=== PATIENT | male | born 1960 | race Caucasian/White ===

== ENCOUNTER 2016-06-23 08:54 | Inpatient (IN) | payer OTHER ==
--- NOTE | ~2016-06-23 | CN ---
Consultation Report [place] [address] [place]. [address] NAME: SILVIANO TABOR : 60 STATUS : ADM IN [facility]#: [id number] AGE: 56 ADM/REG DATE : 06/23/16 MR#: [id number] REPORT SERV DATE: 06/24/16 DICTATED BY: FERNANDO MORENO DATE: 06/24/16 REPORT STATUS : Draft TRANSCRIBED BY: MODL DATE: 06/24/16 CONSULTATION DATE OF CONSULTATION: 06/23/2016 REASON FOR REFERRAL: Evaluation for coronary artery bypass grafting. HISTORY OF PRESENT ILLNESS: The patient is a 56-year-old male, who reports that over the weekend while traveling, he began having chest pain, head and neck soreness, and shortness of breath. He also reported jaw pain. These were relieved with rest. Eventually, this prompted a visit to the emergency department in [place] at the [facility] where his troponins were noted to be elevated with ST changes. He was transferred to [facility] where he underwent cardiac catheterization that revealed multivessel disease including three- vessel disease. He currently denies chest pain. PAST MEDICAL HISTORY: Significant for hypertension, diabetes mellitus, hyperlipidemia, back pain, and questionable stroke history. PAST SURGICAL HISTORY: Includes cholecystectomy, carpal tunnel surgery, cardiac cath, and hernia repair. SOCIAL HISTORY: He continues to smoke at a half pack per day x40 years. Occasional alcohol use. No illegal drug use. 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 He has good family support. FAMILY HISTORY: Significant for heart disease. HOME MEDICATIONS: Include glimepiride, glyburide, Lantus, lisinopril, metformin, simvastatin, and Xanax. ALLERGIES: TO FLEXERIL, TRAMADOL, DARVOCET, ROBAXIN, TAPE, TORADOL, AND AMOXICILLIN. REVIEW OF SYSTEMS: GENERAL: Denies unintentional weight loss or gain. NEUROLOGIC: Denies headaches. Reports some TIA type symptoms. RESPIRATORY: Negative for cough. CARDIOVASCULAR: Positive for chest pain. MUSCULOSKELETAL: Positive for lower extremity leg pain. INTEGUMENTARY: Negative open wounds. GASTROINTESTINAL: Negative for constipation or diarrhea. GENITOURINARY: Negative for dysuria. HEENT: Positive for blurred vision at baseline. PHYSICAL EXAMINATION: VITAL SIGNS: Temperature is 97.9 degrees, respiratory rate of 18, blood pressure is 124/60, heart rate of 84, on 2 L of nasal cannula saturating 95%. His height is 135 cm. Weight 106 Consultation Report [place] [address] [facility] [place]. [address] NAME: SILVIANO TABOR : 60 STATUS : ADM IN [facility]#: [id number] AGE: 56 ADM/REG DATE : 06/23/16 MR#: [id number] REPORT SERV DATE: 06/24/16 DICTATED BY: FERNANDO MORENO DATE: 06/24/16 REPORT STATUS : Draft TRANSCRIBED BY: ANAHY DATE: 06/24/16 kg. HEENT: Normocephalic, atraumatic with no scleral icterus. NECK: Supple with no thyromegaly. CHEST: Clear to auscultation bilaterally. HEART: Regular rate and rhythm with no murmurs, rubs, or gallops. ABDOMEN: Soft, nontender, nondistended. EXTREMITIES: Warm with 1+ distal pulses. No clubbing, cyanosis, or edema. MUSCULOSKELETAL: Grossly intact. NEUROLOGIC: Grossly intact. STUDIES: I did review his cardiac cath and agree with three-vessel coronary artery disease. He also had an echocardiogram performed which showed no valvular disease and a normal ejection fraction. IMPRESSION: Multivessel coronary artery disease, not amenable to percutaneous intervention. PLAN: I do believe he would benefit from multivessel coronary artery bypass grafting. I have explained all risks, benefits, and alternatives of surgery including but not limited to, bleeding, infection, stroke, and . He understands these risks and wished to proceed with surgery. This will be scheduled for tomorrow, 06/24/2016. COLTON/ANAHY Fernando Moreno M.D. / [id number] CC: Valentina Marie JOVONNA R [facility]
--- NOTE | ~2016-06-23 | OP ---
Record Of Operation [facility] [address] [place]. [address] NAME: SILVIANO TABOR : 60 STATUS : ADM IN PAT#: [id number] AGE: 56 ADM/REG DATE : 06/23/16 MR#: [id number] REPORT SERV DATE: 06/26/16 DICTATED BY: FERNANDO MORENO DATE: 06/25/16 REPORT STATUS : Draft TRANSCRIBED BY: MODAbhi DATE: 06/25/16 DATE OF PROCEDURE: 06/24/2016 PREOPERATIVE DIAGNOSES: Multivessel coronary artery disease, morbid obesity, chronic obstructive pulmonary disease, and diabetes mellitus. POSTOPERATIVE DIAGNOSES: Multivessel coronary artery disease, morbid obesity, chronic obstructive pulmonary disease, and diabetes mellitus. PROCEDURE: 1. Urgent coronary artery bypass grafting x3 with GARDNER to the LAD, saphenous vein graft to the posterior descending artery, saphenous vein graft to the obtuse marginal. 2. Transesophageal echocardiogram. 3. VasoView vein harvesting, right lower extremity. SURGEON: Fernando Moreno M.D. PHARMACY MANAGER: Ash Goins. ANESTHESIA: Andrew Spencer M.D. CARDIOPULMONARY BYPASS TIME: 82 minutes. CROSS-CLAMP TIME: 54 minutes. FINDINGS: Good conduit and targets, ejection fraction approximating 45%, no valvular abnormalities. WIRES: Atrioventricular x2. TUBES: Left pleural x1, right pleural x1, and mediastinal x2. COMPLICATIONS: None. CONDITION: Fair to the ICU on no drips. AV paced at 80. DESCRIPTION OF PROCEDURE: After informed consent was obtained from the patient, he was brought to the operating room, laid in supine position. General anesthesia was induced. Transesophageal echocardiogram was performed, which showed ejection fraction approximating 45% with no valvular abnormalities. The patient was prepped and draped in normal fashion. VasoView vein harvesting commenced on the right lower extremity by making an incision just medial to the right knee and dissection carried proximally and distally. All tributaries were coagulated. Counter incisions were made. The vein was removed. All tributaries were then clipped. Skin incisions were closed using Vicryl sutures. Median sternotomy was performed in the usual fashion. Left haile-sternum elevated using a Rultract retractor. The left pleura was taken down in its entirety. The left internal mammary artery harvested from Record Of Operation [facility] [address] [place]. [address] NAME: SILVIANO TABOR : 60 STATUS : ADM IN PAT#: [id number] AGE: 56 ADM/REG DATE : 06/23/16 MR#: [id number] REPORT SERV DATE: 06/26/16 DICTATED BY: FERNANDO MORENO DATE: 06/25/16 REPORT STATUS : Draft TRANSCRIBED BY: MODL DATE: 06/25/16 the chest wall using Bovie electrocautery. All tributaries were clipped. After systemic heparinization, the distal limb was severed from the chest wall and good blood flow was noted. Papaverine was soaked on the vessel wall. Pericardium was opened in the midline and tacked to the skin using multiple silk sutures. Aortic cannulation was performed on the proximal aortic arch and venous cannulation performed in the right atrial appendage. The patient was placed on cardiopulmonary bypass and cooled to approximately 35 degrees Celsius. A cardioplegia/vent cannula was placed in the ascending aorta. Cross clamp was placed across the aorta and 800 mL of cold blood cardioplegia given in the aortic root with excellent arrest. Base of the heart was elevated and a high branching posterior descending artery was identified and dissected using a [place] blade and extended using Park scissors. Saphenous vein was placed in a reverse manner, a dangelo created, and end-to-side anastomosis was performed using a running 7-0 Deklene suture. Heart was filled. The vein sized to the ascending aorta around the right side of the heart. Antegrade cardioplegia was given. Obtuse marginal artery was then identified, dissected using a [place] blade, and extended using Park scissors. Remaining portion of saphenous vein was placed in a reverse manner, a dangelo created, and an end-to-side anastomosis was performed using a running 7-0 Deklene suture. Heart was filled. The vein sized to the ascending aorta around the left side of the heart. Antegrade cardioplegia was given. Midportion of the LAD artery was identified and dissected using a [place] blade and extended using Park scissors. Distal end of the mammary artery was fashioned to a dangelo and end-to-side anastomosis was performed using a running 8-0 Deklene suture. Bulldog was released and excellent blood flow was noted distally. Fascia of the mammary was tacked down to the LV wall using two 6-0 Prolene sutures. Antegrade cardioplegia was given. An 11 blade knife was used to make two separate stab incisions on the ascending aorta and a 4.5 mm punch used to create two separate aortotomies. Two separate proximal anastomoses were performed using a running 6-0 Prolene suture for each. Heart was then filled and de-aired through the root vent. Cross-clamp was removed. Ventricular pacing wires placed on the right ventricular surface. Two atrial pacing wires placed on the right atrial surface. A left pleural, right pleural, and posterior pericardial chest tube were placed. After the patient achieved normothermia, he was weaned from cardiopulmonary bypass without difficulty. Doppler flow analysis was performed on all three tributaries and all three had excellent flow. Protamine was administered. The patient was decannulated. After surgical hemostasis was achieved, an anterior pericardial chest tube was placed. Sternum reapproximated using the sternal cable system. The skin, subcutaneous, and subcuticular tissue were closed over the sternum using running Vicryl and Monocryl sutures. Overall, the patient tolerated the procedure well and was transported to the ICU in fair condition on no drips. AV paced at 80. CCR/MODL Fernando Moreno M.D. / [id number] CC: Record Of Operation [address] [address] NAME: SILVIANO TABOR : 60 STATUS : ADM IN [facility]#: [id number] AGE: 56 ADM/REG DATE : 06/23/16 MR#: [id number] REPORT SERV DATE: 06/26/16 DICTATED BY: FERNANDO MORENO DATE: 06/25/16 REPORT STATUS : Draft TRANSCRIBED BY: MODL DATE: 06/25/16 Valentina Marie JOVANNA R [facility]
--- NOTE | ~2016-06-23 | DS ---
Discharge Summary [facility] [address] [place]. [address] NAME: SILVIANO TABOR : 60 STATUS : DIS IN PAT#: [id number] AGE: 56 ADM/REG DATE : 06/23/16 MR#: [id number] REPORT SERV DATE: 07/10/16 DICTATED BY: MARTY ARTEAGA DATE: 07/09/16 REPORT STATUS : Draft TRANSCRIBED BY: ANAHY DATE: 07/09/16 Data Collection from hospitalization DISCHARGE DIAGNOSES: 1. Twz-HA-cdtnggdfo myocardial infarction. 2. Coronary artery disease, status post coronary artery bypass grafting. 3. Hypertension. 4. Hypercholesterolemia. 5. Type 2 diabetes mellitus. 6. History of questionable stroke. 7. Tobacco use. CONSULTATIONS: 1. Fernando Herrera M.D. 2. Hitesh Seymour M.D. PROCEDURES PERFORMED: 1. Cardiac catheterization on 06/23/2016. 2. Urgent coronary artery bypass grafting x3 with left internal mammary artery to the left anterior descending artery, saphenous vein graft to the posterior descending artery, saphenous vein graft to the obtuse marginal; transesophageal echocardiogram; VasoView vein harvesting from the right lower extremity on 06/24/2016. 3. Carotid blood flow study on 06/23/2016. 4. CT scan of the chest without contrast on 06/23/2016. MEDICATIONS: Aspirin 81 mg daily, Lipitor 80 mg at bedtime, NovoLog injection insulin 10 units subcutaneously before meals, Lantus 50 units subcutaneously twice a day, Prinivil 20 mg daily, Lopressor 50 mg twice a day, and Percocet 10/325 one tablet every four hours as needed. CONDITION AT DISCHARGE: Stable. DISPOSITION: The patient was discharged home on a low-sodium, low-cholesterol diet with activities as instructed. He would follow up with Dr. Fernando Herrera four weeks following discharge. He would follow up with Dr. Ignacio sam three to four weeks following discharge. He would follow up with Dr. Osiel Calix 7 to 10 days following discharge. HOSPITAL COURSE: This is a 56-year-old man who reported that while traveling over the weekend prior to this admission, he began to have chest pain, head and neck soreness, and shortness of breath. He also reported some jaw pain. These were relieved with rest. Eventually, this prompted a visit to the emergency department in [place] at the [facility]. His troponins were noted to be elevated with ST changes. It was felt that he would need to undergo cardiac catheterization. He was felt to have had a [id number] myocardial infarction. He was transferred here and admitted at this time for further evaluation and treatment. Upon admission, he was taken to the cardiac clinical laboratory aides teacher where he underwent the above-mentioned procedure. He tolerated this well, and there were no complications. Postoperatively, he Discharge Summary [place] [id number] [facility] [address]. [address] NAME: SILVIANO TABOR : 60 STATUS : DIS IN PAT#: [id number] AGE: 56 ADM/REG DATE : 06/23/16 MR#: [id number] REPORT SERV DATE: 07/10/16 DICTATED BY: MARTY ARTEAGA DATE: 07/09/16 REPORT STATUS : Draft TRANSCRIBED BY: ANAHY DATE: 07/09/[address] Fernando Herrera. Cardiac catheterization had revealed multivessel disease including three-vessel disease. He denied any chest pain at this time. It was felt that the patient would need to undergo coronary artery bypass grafting. A carotid blood flow study was performed as well as a CT scan of the chest without contrast. The patient was seen by Dr. Hitesh Seymour. O2 saturation was 95% on 2 liters. The patient has insulin- dependent diabetes mellitus type 2, which was uncontrolled. Hemoglobin A1c was 10.7. He has a history of noncompliance using Lantus sporadically, metformin sporadically, and not taking Amaryl and not being inherent to a diabetic diet. He was going to be given Levemir that evening. Postop hyperglycemia orders were in place. The following day, he was taken to the operating room by Dr. Fernando Herrera where he underwent the above-mentioned procedure. He tolerated this well, and there were no complications. He had undergone an echocardiogram preoperatively and was found to have an ejection fraction of 55%. On postop day #1, he complained of pain at the chest tube site. Chest x-ray showed low lung volumes. Pleural chest tubes were removed. The patient was unable to breathe deeply. Diuresis was being performed. On 06/26/2016, the patient was ambulatory. He had no chest pain or shortness of breath. Telemetry revealed sinus rhythm/sinus tachycardia. Metoprolol was increased. Lipitor was going to be increased. He had been changed to subcu insulin. O2 saturation was 93% on room air. Levemir was adjusted. He was evaluated by Physical Therapy. White count was 17.9. The following day, chest x-ray was stable. There was no pneumothorax. He was beginning to ambulate more. Lisinopril was added. Discharge planning was performed. Levemir was increased. On 06/28/2016, he was alert and cooperative. White count was 13.5. He underwent diabetes education. Discharge instructions were given. Due to his improved and stable condition, he was discharged home with the above-stated instructions. Information collected by: Venus Cazares I submit the above information as my discharge summary. TG/MODL Marty Arteaga M.D. / [id number] CC: Valentina Marie JOVONNA R [facility] Coleman Reade, M.D.
[2016-06-23] MEDS ORDERED: GLUCOPHAGE1000 MG PO (13:29)
[2016-06-23] MEDS ORDERED: AMARYL2 PO (13:30)
[2016-06-23] MEDS ORDERED: ZOCOR40 PO (13:31)
[2016-06-23] MEDS ORDERED: LANTUS SC (13:31)
[2016-06-23] MEDS ORDERED: X5 PO (13:31)
[2016-06-23] MEDS ORDERED: LISINOPRIL40 MG PO (13:32)
[2016-06-23 14:01] LABS: BASOPHILS 0.4 %; BASOPHILS ABSOLUTE 0.04 10/3/uL (0.0-0.16); EOSINOPHILS ABSOLUTE 0.29 10/3/uL (0.0-0.53); HEMATOCRIT 40.3 % (40.0-51.0); HEMOGLOBIN 14.3 g/dL (13.6-17.8); IMMATURE GRANULOCYTES 0.3 %; IMMATURE GRANULOCYTES ABSOLUTE 0.03 10/3/uL (0.0-0.11); LYMPHOCYTES 38.9 %; LYMPHOCYTES ABSOLUTE 3.75 10/3/uL (0.67-4.30); MANUAL DIFF NO %; MEAN CORPUS HGB CONC 35.5 g/dL (32.0-36.0); MEAN CORPUSCULAR HEMOGLOB 32.6 pg (26.0-34.0); MEAN CORPUSCULAR VOLUME 91.8 fL (80-100); MEAN PLATELET VOLUME 10.7 fL (9.2-13.0); MONOCYTES 7.5 %; MONOCYTES ABSOLUTE 0.72 10/3/uL (0.21-1.20); NEUTROPHILS 49.9 %; NEUTROPHILS ABSOLUTE 4.81 10/3/uL (2.02-8.40); PLATELET COUNT 162 10/3/uL (150-400); RBC DISTRIBUTION WIDTH 13.5 % (12.0-16.0); RED CELL COUNT 4.39 10/6/uL (4.7-6.1); WHITE BLOOD CELLS 9.6 10/3/uL (4.5-10.5)
[2016-06-23 14:22] LABS: BUN (BLOOD UREA NITROGEN) 16 MG/DL (6-23); CALCIUM, SERUM 9.3 MG/DL (8.5-10.4); CHLORIDE, SERUM 104 MMOL/L (96-112); CHOL/HDL RATIO(NOT ORDER) 7.7 (0-5); CHOLESTEROL 285 MG/DL (< 200); CO2 (CARBON DIOXIDE) 33 MMOL/L (24-34); CREATININE 0.79 MG/DL (0.70-1.30); GFR AFRICAN AMERICAN 116 ML/MIN (>=60); GFR NON AFRICAN AMERICAN 100 ML/MIN (>=60); GLUCOSE, SERUM 138 MG/DL (60-99); HDL CHOLESTEROL 37 MG/DL (> 39); LDL CHOLESTEROL 191 MG/DL (< 130); NON-HDL CHOLESTEROL 248 MG/DL (< 160); POTASSIUM, SERUM 4.1 MMOL/L (3.5-5.3); SODIUM, SERUM 139 MMOL/L (135-148); TRIGLYCERIDE 289 MG/DL (< 150)
[2016-06-23 19:46] LABS: WBC (NOT ORDERED) (RFLEX) 0 (0-5)
[2016-06-23 20:30] LABS: ASCORBIC ACID (UR NOT ORDER) NEG (NEG); BILIRUBIN, URINE NEGATIVE (NEG); KETONE, URINE NEGATIVE (NEG); LEUKOCYTE ESTERASE(NOT OR NEG (NEG)
[2016-06-24 04:14] LABS: BASOPHILS 0.3 %; BASOPHILS ABSOLUTE 0.02 10/3/uL (0.0-0.16); EOSINOPHILS 2.7 %; EOSINOPHILS ABSOLUTE 0.19 10/3/uL (0.0-0.53); HEMATOCRIT 40.9 % (40.0-51.0); HEMOGLOBIN 14.1 g/dL (13.6-17.8); IMMATURE GRANULOCYTES 0.1 %; IMMATURE GRANULOCYTES ABSOLUTE 0.01 10/3/uL (0.0-0.11); LYMPHOCYTES 42.2 %; MEAN CORPUS HGB CONC 34.5 g/dL (32.0-36.0); MEAN CORPUSCULAR HEMOGLOB 31.8 pg (26.0-34.0); MEAN CORPUSCULAR VOLUME 92.3 fL (80-100); MONOCYTES 9.4 %; MONOCYTES ABSOLUTE 0.67 10/3/uL (0.21-1.20); NEUTROPHILS 45.3 %; NEUTROPHILS ABSOLUTE 3.22 10/3/uL (2.02-8.40); PLATELET COUNT 136 10/3/uL (150-400); RBC DISTRIBUTION WIDTH 13.3 % (12.0-16.0); RED CELL COUNT 4.43 10/6/uL (4.7-6.1); WHITE BLOOD CELLS 7.1 10/3/uL (4.5-10.5)
[2016-06-24 04:19] LABS: MANUAL DIFF NO %
[2016-06-24 04:21] LABS: INTERNATIONAL NORMAL RATI 1.1 UNITS (-); PARTIAL THROMBO TIME 30.3 SEC (22.5-37.2); PROTIME (NOT ORD) 13.6 SEC (12.0-14.5)
[2016-06-24 04:35] LABS: A/G RATIO 0.8 (0.7-1.9); ALBUMIN 3.1 G/DL (3.5-5.0); ALKALINE PHOSPHATASE 65 U/L (45-117); BUN (BLOOD UREA NITROGEN) 14 MG/DL (6-23); CALCIUM, SERUM 9.2 MG/DL (8.5-10.4); CHLORIDE, SERUM 102 MMOL/L (96-112); CO2 (CARBON DIOXIDE) 31 MMOL/L (24-34); CREATININE 0.96 MG/DL (0.70-1.30); GFR AFRICAN AMERICAN 102 ML/MIN (>=60); GFR NON AFRICAN AMERICAN 88 ML/MIN (>=60); POTASSIUM, SERUM 4.1 MMOL/L (3.5-5.3); SGOT(AST) 56 U/L (5-40); SGPT(ALT) 90 U/L (5-65); SODIUM, SERUM 140 MMOL/L (135-148); TOTAL BILIRUBIN 0.3 MG/DL (0-1.2); TOTAL PROTEIN 7.1 G/DL (6.0-8.5)
[2016-06-24 04:37] LABS: GLUCOSE, SERUM 318 MG/DL (60-99)
[2016-06-24 13:14] LABS: BE (BASE EXCESS) -4.8 MEQ/L (0 +/- 2.5); CARBOXYHEMOGLOBIN 0.3 % (0-3); HCO3 (ACTUAL BICARBONATE) 20.8 MEQ/L (23-27); HEMOBLOGIN CONTENT 13.5 G/DL (14-18); INSTRUMENT SERIAL # 11843; METHEMOGLOBIN 0.4 % (0-3); MODE SIMV; O2 CONTENT 18.3 VOL% (18-24); OPERATOR ID 18642; PCO2 (CO2 TENSION) 40 MMHG (35-45); PO2 (O2 TENSION) 103 MMHG (79-93); PRESSURE SUPPORT 0 cm.H2O; SAMPLE Arterial; TIDAL VOLUME 800 ML; pH 7.33 (7.37-7.43)
[2016-06-24 13:22] LABS: HEMOGLOBIN 12.7 g/dL (13.6-17.8); PLATELET COUNT 130 10/3/uL (150-400)
[2016-06-24 13:23] LABS: HEMATOCRIT 36.2 % (40.0-51.0)
[2016-06-24 13:31] LABS: INTERNATIONAL NORMAL RATI 1.3 UNITS (-); PARTIAL THROMBO TIME 32.9 SEC (22.5-37.2); PROTIME (NOT ORD) 15.9 SEC (12.0-14.5)
[2016-06-24 13:35] LABS: BUN (BLOOD UREA NITROGEN) 13 MG/DL (6-23); CALCIUM, SERUM 9.2 MG/DL (8.5-10.4); CHLORIDE, SERUM 110 MMOL/L (96-112); CO2 (CARBON DIOXIDE) 29 MMOL/L (24-34); CREATININE 0.93 MG/DL (0.70-1.30); GFR AFRICAN AMERICAN 106 ML/MIN (>=60); GFR NON AFRICAN AMERICAN 91 ML/MIN (>=60); POTASSIUM, SERUM 4.1 MMOL/L (3.5-5.3); SODIUM, SERUM 142 MMOL/L (135-148)
[2016-06-24 13:36] LABS: GLUCOSE, SERUM 165 MG/DL (60-99)
[2016-06-24 13:52] LABS: BE (BASE EXCESS) -0.5 MEQ/L (0 +/- 2.5); CARBOXYHEMOGLOBIN 0.2 % (0-3); HCO3 (ACTUAL BICARBONATE) 26.2 MEQ/L (23-27); HEMOBLOGIN CONTENT 14.5 G/DL (14-18); INSTRUMENT SERIAL # 11843; METHEMOGLOBIN 0.5 % (0-3); MODE SIMV; O2 CONTENT 20.4 VOL% (18-24); OPERATOR ID 18642; PCO2 (CO2 TENSION) 51 MMHG (35-45); PO2 (O2 TENSION) 211 MMHG (79-93); PRESSURE SUPPORT 0 cm.H2O; SAMPLE Arterial; TIDAL VOLUME 800 ML; pH 7.33 (7.37-7.43)
[2016-06-24 18:37] LABS: HEMATOCRIT 39.1 % (40.0-51.0); HEMOGLOBIN 13.7 g/dL (13.6-17.8)
[2016-06-24 18:43] LABS: BE (BASE EXCESS) -1.4 MEQ/L (0 +/- 2.5); CARBOXYHEMOGLOBIN 0.5 % (0-3); DEVICE NC; HCO3 (ACTUAL BICARBONATE) 23.6 MEQ/L (23-27); HEMOBLOGIN CONTENT 14.8 G/DL (14-18); INSTRUMENT SERIAL # 11843; METHEMOGLOBIN 0.5 % (0-3); O2 CONTENT 18.9 VOL% (18-24); OPERATOR ID 16469; PCO2 (CO2 TENSION) 41 MMHG (35-45); PO2 (O2 TENSION) 65 MMHG (79-93); SAMPLE Arterial; pH 7.38 (7.37-7.43)
[2016-06-24 18:47] LABS: POTASSIUM, SERUM 4.2 MMOL/L (3.5-5.3)
[2016-06-25 00:29] LABS: HEMATOCRIT 37.2 % (40.0-51.0); HEMOGLOBIN 13.3 g/dL (13.6-17.8)
[2016-06-25 03:36] LABS: BASOPHILS 0 %; EOSINOPHILS 0 %; HEMATOCRIT 38.7 % (40.0-51.0); HEMOGLOBIN 13.5 g/dL (13.6-17.8); IMMATURE GRANULOCYTES 0.3 %; IMMATURE GRANULOCYTES ABSOLUTE 0.05 10/3/uL (0.0-0.11); LYMPHOCYTES 8.6 %; LYMPHOCYTES ABSOLUTE 1.34 10/3/uL (0.67-4.30); MEAN CORPUS HGB CONC 34.9 g/dL (32.0-36.0); MEAN CORPUSCULAR HEMOGLOB 32.3 pg (26.0-34.0); MEAN CORPUSCULAR VOLUME 92.6 fL (80-100); MEAN PLATELET VOLUME 11.2 fL (9.2-13.0); MONOCYTES 10.9 %; MONOCYTES ABSOLUTE 1.71 10/3/uL (0.21-1.20); NEUTROPHILS 80.2 %; NEUTROPHILS ABSOLUTE 12.53 10/3/uL (2.02-8.40); PLATELET COUNT 120 10/3/uL (150-400); RBC DISTRIBUTION WIDTH 13.4 % (12.0-16.0); RED CELL COUNT 4.18 10/6/uL (4.7-6.1)
[2016-06-25 03:37] LABS: MANUAL DIFF NO %; WHITE BLOOD CELLS 15.6 10/3/uL (4.5-10.5)
[2016-06-25 03:49] LABS: BUN (BLOOD UREA NITROGEN) 14 MG/DL (6-23); CALCIUM, SERUM 8.5 MG/DL (8.5-10.4); CHLORIDE, SERUM 108 MMOL/L (96-112); CO2 (CARBON DIOXIDE) 27 MMOL/L (24-34); CREATININE 0.74 MG/DL (0.70-1.30); GFR AFRICAN AMERICAN 120 ML/MIN (>=60); GFR NON AFRICAN AMERICAN 103 ML/MIN (>=60); GLUCOSE, SERUM 85 MG/DL (60-99); POTASSIUM, SERUM 4.5 MMOL/L (3.5-5.3); SODIUM, SERUM 145 MMOL/L (135-148)
[2016-06-25 17:54] LABS: HEMATOCRIT 36.6 % (40.0-51.0); HEMOGLOBIN 12.9 g/dL (13.6-17.8)
[2016-06-25 18:02] LABS: POTASSIUM, SERUM 4.4 MMOL/L (3.5-5.3)
[2016-06-26 04:03] LABS: BASOPHILS 0.1 %; BASOPHILS ABSOLUTE 0.01 10/3/uL (0.0-0.16); EOSINOPHILS 0.2 %; EOSINOPHILS ABSOLUTE 0.03 10/3/uL (0.0-0.53); HEMATOCRIT 37.4 % (40.0-51.0); HEMOGLOBIN 12.9 g/dL (13.6-17.8); IMMATURE GRANULOCYTES 0.3 %; IMMATURE GRANULOCYTES ABSOLUTE 0.05 10/3/uL (0.0-0.11); LYMPHOCYTES 16.1 %; LYMPHOCYTES ABSOLUTE 2.88 10/3/uL (0.67-4.30); MEAN CORPUS HGB CONC 34.5 g/dL (32.0-36.0); MEAN CORPUSCULAR HEMOGLOB 31.8 pg (26.0-34.0); MEAN CORPUSCULAR VOLUME 92.1 fL (80-100); MEAN PLATELET VOLUME 10.7 fL (9.2-13.0); MONOCYTES 15.6 %; MONOCYTES ABSOLUTE 2.79 10/3/uL (0.21-1.20); NEUTROPHILS 67.7 %; NEUTROPHILS ABSOLUTE 12.16 10/3/uL (2.02-8.40); PLATELET COUNT 145 10/3/uL (150-400); RBC DISTRIBUTION WIDTH 13.5 % (12.0-16.0); RED CELL COUNT 4.06 10/6/uL (4.7-6.1); WHITE BLOOD CELLS 17.9 10/3/uL (4.5-10.5)
[2016-06-26 04:04] LABS: MANUAL DIFF NO %
[2016-06-26 04:10] LABS: INTERNATIONAL NORMAL RATI 1.3 UNITS (-)
[2016-06-26 04:21] LABS: BUN (BLOOD UREA NITROGEN) 17 MG/DL (6-23); CALCIUM, SERUM 8.9 MG/DL (8.5-10.4); CHLORIDE, SERUM 97 MMOL/L (96-112); CO2 (CARBON DIOXIDE) 29 MMOL/L (24-34); CREATININE 0.82 MG/DL (0.70-1.30); GFR AFRICAN AMERICAN 115 ML/MIN (>=60); GFR NON AFRICAN AMERICAN 99 ML/MIN (>=60); GLUCOSE, SERUM 224 MG/DL (60-99); POTASSIUM, SERUM 4.4 MMOL/L (3.5-5.3); SODIUM, SERUM 134 MMOL/L (135-148)
[2016-06-27 06:06] LABS: BUN (BLOOD UREA NITROGEN) 19 MG/DL (6-23); CALCIUM, SERUM 9.4 MG/DL (8.5-10.4); CHLORIDE, SERUM 94 MMOL/L (96-112); CO2 (CARBON DIOXIDE) 32 MMOL/L (24-34); CREATININE 0.95 MG/DL (0.70-1.30); GFR AFRICAN AMERICAN 103 ML/MIN (>=60); GFR NON AFRICAN AMERICAN 89 ML/MIN (>=60); GLUCOSE, SERUM 229 MG/DL (60-99); POTASSIUM, SERUM 4.3 MMOL/L (3.5-5.3); SODIUM, SERUM 133 MMOL/L (135-148)
[2016-06-27 06:10] LABS: BASOPHILS 0.1 %; BASOPHILS ABSOLUTE 0.02 10/3/uL (0.0-0.16); EOSINOPHILS 0.8 %; EOSINOPHILS ABSOLUTE 0.13 10/3/uL (0.0-0.53); HEMATOCRIT 36.9 % (40.0-51.0); IMMATURE GRANULOCYTES 0.4 %; IMMATURE GRANULOCYTES ABSOLUTE 0.06 10/3/uL (0.0-0.11); LYMPHOCYTES ABSOLUTE 2.96 10/3/uL (0.67-4.30); MEAN CORPUS HGB CONC 35.2 g/dL (32.0-36.0); MEAN CORPUSCULAR HEMOGLOB 32.1 pg (26.0-34.0); MEAN CORPUSCULAR VOLUME 91.1 fL (80-100); MEAN PLATELET VOLUME 10.4 fL (9.2-13.0); MONOCYTES 17.2 %; MONOCYTES ABSOLUTE 2.68 10/3/uL (0.21-1.20); NEUTROPHILS 62.5 %; NEUTROPHILS ABSOLUTE 9.72 10/3/uL (2.02-8.40); PLATELET COUNT 150 10/3/uL (150-400); RBC DISTRIBUTION WIDTH 13.2 % (12.0-16.0); RED CELL COUNT 4.05 10/6/uL (4.7-6.1); WHITE BLOOD CELLS 15.6 10/3/uL (4.5-10.5)
[2016-06-27 06:13] LABS: MANUAL DIFF NO %
[2016-06-28 06:13] LABS: BASOPHILS 0.2 %; BASOPHILS ABSOLUTE 0.03 10/3/uL (0.0-0.16); EOSINOPHILS 2.1 %; EOSINOPHILS ABSOLUTE 0.28 10/3/uL (0.0-0.53); HEMATOCRIT 37.1 % (40.0-51.0); HEMOGLOBIN 12.9 g/dL (13.6-17.8); IMMATURE GRANULOCYTES 0.5 %; IMMATURE GRANULOCYTES ABSOLUTE 0.07 10/3/uL (0.0-0.11); LYMPHOCYTES 23.1 %; LYMPHOCYTES ABSOLUTE 3.12 10/3/uL (0.67-4.30); MEAN CORPUS HGB CONC 34.8 g/dL (32.0-36.0); MEAN CORPUSCULAR HEMOGLOB 32.4 pg (26.0-34.0); MEAN CORPUSCULAR VOLUME 93.2 fL (80-100); MEAN PLATELET VOLUME 10.6 fL (9.2-13.0); MONOCYTES 15.6 %; MONOCYTES ABSOLUTE 2.11 10/3/uL (0.21-1.20); NEUTROPHILS 58.5 %; NEUTROPHILS ABSOLUTE 7.88 10/3/uL (2.02-8.40); RED CELL COUNT 3.98 10/6/uL (4.7-6.1); WHITE BLOOD CELLS 13.5 10/3/uL (4.5-10.5)
[2016-06-28 06:14] LABS: MANUAL DIFF NO %; PLATELET COUNT 211 10/3/uL (150-400)
[2016-06-28 06:37] LABS: BUN (BLOOD UREA NITROGEN) 17 MG/DL (6-23); CHLORIDE, SERUM 94 MMOL/L (96-112); CO2 (CARBON DIOXIDE) 31 MMOL/L (24-34); CREATININE 0.77 MG/DL (0.70-1.30); GFR AFRICAN AMERICAN 118 ML/MIN (>=60); GFR NON AFRICAN AMERICAN 101 ML/MIN (>=60); GLUCOSE, SERUM 187 MG/DL (60-99); POTASSIUM, SERUM 3.7 MMOL/L (3.5-5.3); SODIUM, SERUM 136 MMOL/L (135-148)
[2016-06-28] MEDS ORDERED: ASAB PO (10:13)
[2016-06-28] MEDS ORDERED: LIPITOR80 MG PO (10:14)
[2016-06-28] MEDS ORDERED: PRIN20 PO (10:14)
[2016-06-28] MEDS ORDERED: LOP50 PO (10:15)
[2016-06-28] MEDS ORDERED: PERCOCET 10/3251 TAB PO (10:15)
[2016-06-28] MEDS ORDERED: NOVOLOG SC (10:24)
== END 2016-06-28 17:33 | disposition home or self-care (01) | DRG 234 ==
LOC: CORLMH 08:54 → SSU1 12:28 → SDC/OF 06-24 07:29 → CVICU 06-24 11:21 → 5NO 06-26 15:39
PROVIDERS: Internal Medicine Cardiovascular Disease; Internal Medicine Interventional Cardiology; Thoracic Surgery (Cardiothoracic Vascular Surgery)
PROC: 4A023N7 Measurement of Cardiac Sampling and Pressure, Left Heart, Percutaneous Approach (ICD-10-PCS; principal; 2016-06-23)
PROC: 021109W Bypass Coronary Artery, Two Arteries from Aorta with Autologous Venous Tissue, Open Approach (ICD-10-PCS; 2016-06-23)
PROC: B2111ZZ Fluoroscopy of Multiple Coronary Arteries using Low Osmolar Contrast (ICD-10-PCS; 2016-06-23)
PROC: 0210099 Bypass Coronary Artery, One Artery from Left Internal Mammary with Autologous Venous Tissue, Open Approach (ICD-10-PCS; 2016-06-23)
PROC: B2151ZZ Fluoroscopy of Left Heart using Low Osmolar Contrast (ICD-10-PCS; 2016-06-23)
PROC: 06BP3ZZ Excision of Right Saphenous Vein, Percutaneous Approach (ICD-10-PCS; 2016-06-23)
PROC: B246ZZ4 Ultrasonography of Right and Left Heart, Transesophageal (ICD-10-PCS; 2016-06-23)
PROC: 5A1221Z Performance of Cardiac Output, Continuous (ICD-10-PCS; 2016-06-23)
DX: I21.4 Non-ST elevation (NSTEMI) myocardial infarction (principal); E66.01 Morbid (severe) obesity due to excess calories; J44.9 Chronic obstructive pulmonary disease, unspecified; I25.110 Atherosclerotic heart disease of native coronary artery with unstable angina pectoris; F17.210 Nicotine dependence, cigarettes, uncomplicated; E11.9 Type 2 diabetes mellitus without complications; E78.5 Hyperlipidemia, unspecified; Z90.49 Acquired absence of other specified parts of digestive tract; Z98.890 Other specified postprocedural states; Z79.899 Other long term (current) drug therapy; Z79.84 Long term (current) use of oral hypoglycemic drugs; Z79.4 Long term (current) use of insulin; Z88.8 Allergy status to other drugs, medicaments and biological substances; Z88.1 Allergy status to other antibiotic agents; Z68.33 Body mass index [BMI] 33.0-33.9, adult
CPT/HCPCS: 31720; 36415; 71010; 71020; 71250; 80048; 80053; 80061; 81001; 82330; 82803; 82805; 82947; 82962; 83036; 83735; 84132; 84295; 85014; 85018; 85025; 85049; 85347; 85610; 85730; 86850; 86900; 86901; 86920; 87641; 93005; 93312; 93320; 93325; 93458; 93880; 94002; 94640; 94660; 94770; 97161-GP; 99152; 99153; A9270-GY; C1713; C1769; C1887; C1894; C1898; C8929; J0690; J1644; J1940; J2150; J2250; J2370; J2405; J2440; J2720; J2930; J3010; J3475; J3480; P9045; P9047; Q9957; Q9967